=== PATIENT | female | born 1985 | race Caucasian/White ===

== ENCOUNTER 2020-04-19 00:41 | Emergency (ER) | payer SELFPAY ==
[2020-04-19] MEDS ORDERED: PROVENTIL0.09 MG/A1 IH (01:02)
[2020-04-19] MEDS ORDERED: ALBUTEROL2.5 MG/3 M IH (01:03)
[2020-04-19] MEDS ORDERED: SINGULAIR PO (01:03)
[2020-04-19] MEDS ORDERED: PROTONIX TR40 M1 PO (01:03)
[2020-04-19] MEDS ORDERED: SPIRIVA RESPIMAT4 GM IH (01:04)
[2020-04-19 01:26] LABS: EOS # 0.4 (0.04-0.40); HEMATOCRIT 39.2 % (37.0-47.0); HEMOGLOBIN 13.1 g/dL (12.5-16.0); LYMPH# 2.2 (1.50-4.00); MEAN CELL VOLUME 84 fl (78-100); MEAN CORPUSCULAR HEMOGLOBIN 28 pg (27-31); MEAN CORPUSCULAR HGB CONC 33 g/dL (33-37); MEAN PLATELET VOLUME 9.5 fl (7.4-10.4); MONO # 0.5 (0.20-0.80); NEU # 5.5 (1.40-6.50); PLATELET COUNT 281 K/mm3 (130-400); RED BLOOD COUNT 4.66 M/mm3 (4.10-5.30); RED CELL DISTRIBUTION WIDTH 13.7 % (11.5-14.5); WHITE BLOOD COUNT 8.6 K/mm3 (4.8-10.8)
[2020-04-19 01:34] LABS: ALBUMIN 4.2 g/dL (3.5-5.0)
[2020-04-19 01:36] LABS: CALCIUM 9.6 mg/dL (8.3-10.5)
[2020-04-19 01:37] LABS: TOTAL PROTEIN 6.7 g/dL (6.4-8.3)
[2020-04-19 01:39] LABS: TOTAL BILIRUBIN 0.4 mg/dL (0.2-1.2)
[2020-04-19 01:43] LABS: URINE APPEARANCE CLEAR; URINE BILIRUBIN NEGATIVE (NEGATIVE); URINE COLOR YELLOW; URINE GLUCOSE NEGATIVE (NEGATIVE); URINE KETONE 1+ (NEGATIVE); URINE PROTEIN(semi-quant) 1+ mg/dL (NEGATIVE)
[2020-04-19 01:44] LABS: URINE BLOOD TRACE (NEGATIVE); URINE LEUKOCYTE ESTERASE NEGATIVE (NEGATIVE); URINE MUCUS PRESENT (NOT PRESENT); URINE NITRATE NEGATIVE (NEGATIVE); URINE UROBILINOGEN NORMAL (NORMAL); URINE WBC 0-1 /hpf (0-3)
[2020-04-19 02:36] LABS: LIPASE 28 U/L (8-78)
[2020-04-19 05:05] VITALS: BP 105/74
== END 2020-04-19 05:05 | disposition short-term general hospital (02) ==
LOC: ED 00:41
PROVIDERS: Family Medicine
DX: K56.609 Unspecified intestinal obstruction, unspecified as to partial versus complete obstruction (principal); K63.89 Other specified diseases of intestine; F17.210 Nicotine dependence, cigarettes, uncomplicated; Z90.710 Acquired absence of both cervix and uterus; Z87.442 Personal history of urinary calculi; Z98.84 Bariatric surgery status
CPT/HCPCS: J1885; J2405; J2765; J3010; J3490; J7030; Q9967

== ENCOUNTER 2020-09-14 07:26 | Emergency (ER) | payer SELFPAY ==
[~2020-09-14] VITALS: Ht 160 cm; Wt 77.3 kg
[~2020-09-14 07:26] MED LIST: ALBUTEROL2.5 MG/3 M IH; PROTONIX TR40 M1 PO; PROVENTIL0.09 MG/A1 IH; SINGULAIR PO; SPIRIVA RESPIMAT4 GM IH
[2020-09-14 08:14] LABS: EOS # 0.3 (0.04-0.40); EOS % 4.2 % (1.0-5.0); HEMATOCRIT 37.4 % (37.0-47.0); HEMOGLOBIN 12.1 g/dL (12.5-16.0); LYMPH# 1.5 (1.50-4.00); MEAN CELL VOLUME 88 fl (78-100); MEAN CORPUSCULAR HEMOGLOBIN 28 pg (27-31); MEAN CORPUSCULAR HGB CONC 32 g/dL (33-37); MEAN PLATELET VOLUME 9.1 fl (7.4-10.4); MONO # 0.3 (0.20-0.80); PLATELET COUNT 305 K/mm3 (130-400); RED BLOOD COUNT 4.27 M/mm3 (4.10-5.30); RED CELL DISTRIBUTION WIDTH 12.8 % (11.5-14.5); WHITE BLOOD COUNT 6.1 K/mm3 (4.8-10.8)
[2020-09-14 08:22] LABS: ALBUMIN 3.9 g/dL (3.5-5.0); POTASSIUM 4.2 mmol/L (3.5-5.1)
[2020-09-14 08:24] LABS: CALCIUM 9.1 mg/dL (8.3-10.5)
[2020-09-14 08:25] LABS: TOTAL PROTEIN 6.1 g/dL (6.4-8.3)
[2020-09-14 08:27] LABS: TOTAL BILIRUBIN 0.2 mg/dL (0.2-1.2)
[2020-09-14 08:29] LABS: URINE APPEARANCE CLEAR; URINE BILIRUBIN NEGATIVE (NEGATIVE); URINE BLOOD TRACE (NEGATIVE); URINE COLOR YELLOW; URINE GLUCOSE NEGATIVE (NEGATIVE); URINE KETONE NEGATIVE (NEGATIVE); URINE LEUKOCYTE ESTERASE NEGATIVE (NEGATIVE); URINE MUCUS PRESENT (NOT PRESENT); URINE NITRATE NEGATIVE (NEGATIVE); URINE PROTEIN(semi-quant) TRACE mg/dL (NEGATIVE); URINE UROBILINOGEN NORMAL (NORMAL)
[2020-09-14 13:09] VITALS: BP 100/72
== END 2020-09-14 13:14 | disposition home or self-care (01) ==
LOC: ED 07:26
PROVIDERS: Nurse Practitioner
DX: R10.10 Upper abdominal pain, unspecified (principal); K59.00 Constipation, unspecified; J45.909 Unspecified asthma, uncomplicated; F17.200 Nicotine dependence, unspecified, uncomplicated; Z85.42 Personal history of malignant neoplasm of other parts of uterus; Z98.84 Bariatric surgery status; Z90.49 Acquired absence of other specified parts of digestive tract; Z90.710 Acquired absence of both cervix and uterus
CPT/HCPCS: J2405; J2550; J3010; J7030; Q9967